=== PATIENT | female | born 1960 | race Caucasian/White ===

== ENCOUNTER 2022-05-01 04:18 | Day surgery (SDC) | payer BC ==
[2022-04-26 11:12] VITALS: BMI 28.7
[2022-05-01] MEDS ORDERED: IBUPROFEN 800 MG/8 ML IJ IVPB PRN (07:35)
[2022-05-01] MEDS ORDERED: IBUPROFEN 600 MG TABLET (FP) PO PRN (07:35)
[2022-05-01] MEDS ORDERED: ONDANSETRON 4 MG/2 ML VIAL IVPUSH PRN (07:35)
[2022-05-01] MEDS ORDERED: oxyCODONE HCL 5 MG TABLET PO PRN (07:35)
[2022-05-01] MEDS ORDERED: ONDANSETRON 4 MG/2 ML VIAL ONE (07:43)
[2022-05-01] MEDS ORDERED: DEXAMETHASONE SOD PHOSPHATE 4 MG/1 ML VIAL ONE (07:43)
[2022-05-01] MEDS ORDERED: PROPOFOL 20 ML ONE (07:43)
[2022-05-01] MEDS ORDERED: LIDOCAINE HCL/PF 2% SDV 5ML VIAL ONE (07:43)
[2022-05-01] MEDS ORDERED: ELECTROLYTE-148 SOLN 1,000 ML IV SCH (07:45)
[2022-05-01] MEDS ORDERED: KETOROLAC TROMETHAMINE 30 MG/1 ML VIAL ONE (08:25)
[2022-05-01] MEDS ORDERED: LACTATED RINGERS SOLUTION 1,000 ML IV SCH (08:45)
[2022-05-01 13:25] VITALS: RESP 20; TEMP 97.9
[2022-05-01 13:27] VITALS: BP 129/66; PULSE 58
== END 2022-05-01 11:00 | disposition home or self-care (01) ==
LOC: JASU-SURG 04:18
PROVIDERS: ATTEND Obstetrics & Gynecology
PROC: 0UDB8ZX Extraction of Endometrium, Via Natural or Artificial Opening Endoscopic, Diagnostic (ICD-10-PCS; principal; 2022-05-01 07:30)
DX: N95.0 Postmenopausal bleeding (principal); D25.9 Leiomyoma of uterus, unspecified; N95.8 Other specified menopausal and perimenopausal disorders
CPT/HCPCS: 88305-TC; 94760

== ENCOUNTER 2023-07-25 09:33 | Emergency (ER) | payer BC ==
[2023-07-25 09:50] VITALS: BP 170/75; PULSE 73; RESP 16; TEMP 97.3; BMI 30.2
[2023-07-25] MEDS ORDERED: ACETAMINOPHEN 500 MG TABLET (FP) ONE (10:31)
[2023-07-25] MEDS: ACETAMINOPHEN 500 MG TABLET (FP) PO ONE (10:34)
== END 2023-07-25 13:26 | disposition home or self-care (01) ==
LOC: JERFT 09:33
DX: M25.531 Pain in right wrist (principal); M25.532 Pain in left wrist; M54.50 Low back pain, unspecified; R51.9 Headache, unspecified; M54.2 Cervicalgia; W19.XXXA Unspecified fall, initial encounter; Y90.0 Blood alcohol level of less than 20 mg/100 ml
CPT/HCPCS: 70450-TC; 72125-TC; 73110-TC-LT-FY; 73110-TC-RT-FY; 73130-TC-LT-FY; 73130-TC-RT-FY; 99284-25